=== PATIENT | male | born 1975 | race Caucasian/White ===

== ENCOUNTER 2020-12-11 09:29 | Emergency (ER) | payer OTHER, SELFPAY ==
--- NOTE | ~2020-12-11 | CT_ITS ---
EXAMINATION: CT abdomen pelvis w con DATE: 12/11/2020 10:31 INDICATION: 3 days of epigastric pain radiating to the back along with nausea and vomiting TECHNIQUE: Computed tomography (CT) of the abdomen and pelvis was performed with 100 mL Omnipaque-350 intravenous contrast. Automated exposure control and iterative reconstruction technique were employe d. The dose-length product was 1240.61 mGy-cm. COMPARISON: None FINDINGS: Lung bases are clear. Heart size is normal. No pericardial or pleural effusion. Postoperative change of prior Manan fundoplication. Liver, gallbladder, spleen, pancreas, bilateral adrenal glands and ki dneys are normal. There is wall thickening at the first and second portions of the duodenum with mild haziness to the immediately adjacent fat consistent with duodenitis. Large amount of stool scattered throughout the colon which could be seen with constipation. No bowel obstruction. Normal appendix. M ild diffuse smooth bladder wall thickening which could be due to incomplete distention or cystitis ei ther acute or chronic. No free intraperitoneal gas or fluid. No pathologically enlarged abdominal or pelvic lymphadenopathy. Lumbar facet osteoarthritis, severe on the left at L5-S1 and otherwise mild t o moderate. IMPRESSION: 1. Edematous wall thickening at the first and second portion of the duodenum consistent with duodenit is which could be infectious or inflammatory in etiology or related to peptic ulcer disease. 2. Diffuse mild bladder wall thickening which could be due to incomplete distention with differential including cystitis either acute or chronic. Correlate with urinalysis. Reviewed, dictated and finalized at location [facility]. [employer] IMPRESSION: 1. Edematous wall thickening at the first and second portion of the duodenum co nsistent with duodenitis which could be infectious or inflammatory in etiology or related to peptic ulcer disease. 2. Diffuse mild bladder wall thickening which could be due to incomplete disten tion with differential including cystitis either acute or chronic. Correlate wi urinalysis.
[2020-12-11 09:41] VITALS: BP 162/95; PULSE 77; RESP 16; TEMP 36.3; O2SAT 100
--- NOTE | 2020-12-11 09:56 | ED.ABDPAIN ---
HPI - Abdominal Pain General Chief Complaint: Abdominal Pain Stated Complaint: abd pain Time Seen by Provider: 12/11/20 09:52 History of Present Illness HPI narrative: 45 yo male w/ h/o hiatal hernia s/p repair presents to the ED for abdominal pain. Epigastric pain started 3 days ago. Burning in quality. Radiates into his chest. Severe for the first 2 days. associated with nausea. Made worse by eating. Now mild-moderate. Went to PCP today and they sent him here for further evaluation. No fever, diarrhea, vomiting. Related Data Allergies Allergy/AdvReac Type Severity Reaction Status Date / Time Penicillins Allergy Unknown Unknown Verified 12/11/20 09:44 Review of Systems Review of Systems: All systems reviewed & are unremarkable except as noted in HPI and below Constitutional: Constitutional: Denies chills and Denies fever(s) Cardiovascular: Cardiovascular: Denies chest pain Respiratory: Respiratory: Denies dyspnea Gastrointestinal: Gastrointestinal: Reports abdominal pain, Denies constipation, Denies diarrhea, Reports nausea and Denies vomiting Genitourinary: Genitourinary: Denies dysuria Musculoskeletal: Musculoskeletal: Denies back pain Neurologic: Denies dizziness and Denies weakness [facility] Past Medical History Medical History HTN (hypertension) Inguinal hernia Surgical History Surgical History Hx of inguinal hernia repair Social History Social History Smoking status: Former smoker Substance use type: marijuana Gender identity (if verbalized by the patient): Male Exam Const: General: healthy appearing, no acute distress and alert Orientation/consciousness: patient oriented x3 HENMT: Head: normal to inspection Neck: Neck: normal visual inspection Resp: Effort & Inspection: normal respiratory effort Auscultation: clear to auscultation bilaterally, no rales, no rhonchi and no wheezes Cardio: Jugular venous distension: no JVD Rate: regular rate Rhythm: regular rhythm Heart sounds: no murmurs GI: Inspection: non-distended GI Palp: Yes Soft to palpation and Yes Tenderness to palpation present (GI) (epigastrium) Skin: General skin exam: normal color Neuro: General: patient oriented x3, moves all extremities and CN's II-XI intact bilaterally Speech: normal speech Extrem: General: no edema Psych: Appearance: well kempt Affect: normal affect Course Vital Signs Vital signs: Vital Signs Temperature 36.3 C L 12/11/20 09:41 Pulse Rate 77 12/11/20 09:41 Respiratory Rate 16 12/11/20 09:41 Blood Pressure 162/95 H 12/11/20 09:41 Pulse Oximetry 100 12/11/20 09:41 Temperature 36.3 C L 12/11/20 09:41 Pulse Rate 80 12/11/20 11:11 Respiratory Rate 12 12/11/20 11:11 Blood Pressure 155/70 H 12/11/20 11:11 Pulse Oximetry 99 12/11/20 11:11 MDM - Abdominal Pain MDM Narrative Medical decision making narrative: SYmptoms most concerning for PUD. infectious less likely. Plan discussed with Dr. Vick. He will follow-up. Differential Diagnosis Differential diagnosis: Likely pancreatitis and other (PUD, cholecystitis) Medical Records Attestation: I reviewed the patient's medical records. Lab Data Attestation: I reviewed the patient's lab results. Result diagrams: 12/11/20 09:50 12/11/20 09:50 Labs: Lab Results 12/11/20 12/11/20 12/11/20 Range/Units 09:50 09:50 11:22 WBC 8.8 (4.5-10.0) K/mm3 RBC 4.95 (4.6-6.20) M/mm3 Hgb 16.2 (14.0-18.0) g/dL Hct 46.5 (42.0-52.0) % MCV 93.9 (80-100) fl MCH 32.7 (26-34) pg MCHC 34.8 (32-36) g/dl RDW 11.9 (11.5-14.5) % Plt Count 185 (150-375) k/mm3 MPV 8.9 (7.4-10.4) fl Immature Gran % (Auto) 0.3 (0-0.5) % Neut % (Auto) 69.9 (45.5-73.1) % Lymph % (Auto) 19.3 (18.
[2020-12-11 09:59] LABS: Basophils Absolute Auto 0.1 K/mm3 (0.0-0.1); Basophils Percent Auto 0.6 % (0.2-1.2); Eosinophils Absolute Auto 0.2 K/mm3 (0-0.3); Eosinophils Percent Auto 2.5 % (0-4.4); Hematocrit 46.5 % (42.0-52.0); Hemoglobin 16.2 g/dL (14.0-18.0); Immature Granulocyte Absolute 0.03 K/mm3 (0.00-0.031); Immature Granulocyte Percent A 0.3 % (0-0.5); Lymphocytes Percent Auto 19.3 % (18.3-44.2); Mean Corpuscular HGB Conc 34.8 g/dl (32-36); Mean Corpuscular Hemoglobin 32.7 pg (26-34); Mean Corpuscular Volume 93.9 fl (80-100); Mean Platelet Volume 8.9 fl (7.4-10.4); Monocytes Absolute Auto 0.7 K/mm3 (0.1-0.6); Monocytes Percent Auto 7.4 % (2.6-8.5); Neutrophils Absolute Auto 6.2 K/mm3 (1.3-6.7); Neutrophils Percent Auto 69.9 % (45.5-73.1); Platelet Count Result 185 k/mm3 (150-375); Red Blood Count 4.95 M/mm3 (4.6-6.20); Red Cell Distribution Width 11.9 % (11.5-14.5); White Blood Count 8.8 K/mm3 (4.5-10.0)
[2020-12-11 10:10] LABS: Alanine Aminotransferase 23 U/L (4-50); Albumin Level 4.4 g/dL (3.5-5.1); Alkaline Phosphatase 52 U/L (38-126); Anion Gap 8 mmol/L (8-16); Aspartate Amino Transferase 27 U/L (17-59); Bilirubin,Total 0.4 mg/dL (0.2-1.3); Blood Urea Nitrogen 14 mg/dL (9-20); Calcium 9.2 mg/dL (8.4-10.2); Carbon Dioxide 25 mmol/L (22-30); Chloride 101 mmol/L (98-107); Estimated CRCL calculation 126 ml/min; Estimated Glomerular Filt Rate > 60; Glucose 101 mg/dL (75-110); Lipase 70 U/L (23-300); Potassium 4.3 mmol/L (3.4-5.0); Sodium 134 mmol/L (137-145)
[2020-12-11] MEDS: PANTOPRAZOLE SODIUM IV 40 MG VIAL IV PUSH (11:02)
[2020-12-11 11:11] VITALS: BP 155/70; PULSE 80; RESP 12; O2SAT 99
[2020-12-11 11:38] LABS: Add Urine Microscopic? NO; Appearance Urine Clear (Clear); Bilirubin Urine Negative (Negative); Blood Urine Negative (Negative); Color Urine Straw (Yellow); Glucose Urine UA Negative (Negative); Ketones Urine Negative (Negative); Leukocyte Esterase Ur Negative LEU/UL (Negative); Nitrate Urine Negative (Negative); Protein Urine Negative (Negative); Urobilinogen Urine Negative mg/dL (<2.0)
[2020-12-11 11:39] LABS: Specific Grav Ur 1.046 (1.001-1.035)
== END 2020-12-11 11:45 | disposition home or self-care (01) ==
PROVIDERS: Emergency Provider Emergency Medicine; PCP Family Medicine
DX: K29.80 Duodenitis without bleeding (principal); I10 Essential (primary) hypertension
CPT/HCPCS: 36415; 74177; 80053; 81003; 83690; 85025; 96374; 99284; C9113; Q9967

== ENCOUNTER → 2021-03-08 07:04 | Outpatient (CLI) | payer OTHER, SELFPAY ==
[2021-03-09 00:40] LABS: SARS-CoV-2 RNA PCR Negative
== END ==
PROVIDERS: PCP Family Medicine; Visit Provider Internal Medicine Gastroenterology
DX: Z01.812 Encounter for preprocedural laboratory examination (principal); Z20.822 Contact with and (suspected) exposure to COVID-19
CPT/HCPCS: C9803; U0003; U0005

== ENCOUNTER 2021-03-12 00:46 | Day surgery (SDC) | payer OTHER, SELFPAY ==
[2021-03-04 13:06] VITALS: BMI 31.4
[2021-03-12 08:22] VITALS: BP 146/83; PULSE 80; RESP 18; TEMP 36.6; O2SAT 98
[2021-03-12] MEDS: LACTATED RINGERS 1,000 ML 150 ML IV CONT (08:31)
--- NOTE | 2021-03-12 08:54 | WPDANESEPPF ---
Anes - Initial Pre Proc Eval Procedure: Operation Date: 03/12/21 09:30 Proposed Procedures p Esophagogastroduodenoscopy - Hernan Ha MD Date/Time: 03/12/21 08:54 Surgeon: Hernan Ha MD Pre Op Diagnosis: abnormal CAT, Duodenitis Patient Data Age: 45 Gender: M Height: 5 ft 11 in Weight: 99 kg Last Vital Signs Temp 97.9 F 03/12/21 08:22 Pulse 80 03/12/21 08:22 Resp 18 03/12/21 08:22 BP 146/83 H 03/12/21 08:22 Pulse Ox 98 03/12/21 08:22 Allergies Allergy/AdvReac Type Severity Reaction Status Date / Time Penicillins Allergy Unknown Rash Verified 03/12/21 08:21 Home Medications Medication Instructions Recorded Confirmed Type clonidine HCl 0.1 mg PO DAILY 03/04/21 03/04/21 History lisinopril-hydrochlorothiazide 10 - 12.5 tablet PO DAILY 03/04/21 03/04/21 History omeprazole 20 mg PO DAILY 03/04/21 03/04/21 History Patient hx anesthesia problems: none Family hx anesthesia problems: none PMFSH Past Medical History Medical History HTN (hypertension) Inguinal hernia Surgical History Surgical History Hx of inguinal hernia repair Social History Social History (Updated 02/10/21 @ 15:09 by Charla Cisse CMA) Smoking status: Current some day smoker Tobacco type: cigars Alcohol intake: current Alcohol use details: 3/4 x wk Substance use: current Substance use type: marijuana Living arrangements: with family Gender identity (if verbalized by the patient): Male Anes - Eval Final PreProcedure Day of Procedure 03/12/21 08:54 Patient weight: overweight Heart: regular rate and rhythm Lungs: clear to auscultation Airway: Mallampati scale class II Neurological: alert and oriented Last oral intake: >/= 8 hours ASA classification: II Emergent: no Anesthetic plan: proceed Anesthesia type and monitoring: general GIVS and standard monitoring Informed Consent: The patient's anesthetic plan and its attendant risks and benefits were discussed with the patient/family/POA. Questions were solicited and answers provided to the satisfaction of the patient/family/POA.
--- NOTE | 2021-03-12 09:06 | PM.HPGS ---
History of Present Illness History of Present Illness Consent: Risks, benefits, and alternatives have been discussed and questions answered. Patient agrees to proceed with procedure. Chief complaint: abnormal CAT, Duodenitis Narrative: Casey La is a 45 year old male referred for EGD because of epigastric pain and an abnormal CT scan Review of Systems Review of Systems: All systems reviewed & are unremarkable except as noted in HPI and below PMFSH Past Medical History Medical History (Updated 03/12/21 @ 09:07 by Hernan Ha MD) HTN (hypertension) Inguinal hernia Surgical History Surgical History Hx of inguinal hernia repair Social History Social History Smoking status: Current some day smoker Tobacco type: cigars Alcohol intake: current Alcohol use details: 3/4 x wk Substance use: current Substance use type: marijuana Living arrangements: with family Gender identity (if verbalized by the patient): Male Meds Home Medications and Allergies Home Medications Medication Instructions Recorded Confirmed Type clonidine HCl 0.1 mg PO DAILY 03/04/21 03/04/21 History lisinopril-hydrochlorothiazide 10 - 12.5 tablet PO DAILY 03/04/21 03/04/21 History omeprazole 20 mg PO DAILY 03/04/21 03/04/21 History Allergies Allergy/AdvReac Type Severity Reaction Status Date / Time Penicillins Allergy Unknown Rash Verified 03/12/21 08:21 Vital Signs Vital Signs - 24 hr 03/12/21 08:22 Temperature 36.6 C Pulse Rate 80 Respiratory Rate 18 Blood Pressure 146/83 H Pulse Oximetry 98 Exam Const: General: alert Orientation/consciousness: patient oriented x3 Resp: Auscultation: clear to auscultation bilaterally Cardio: Rhythm: regular rhythm GI: GI Palp: Yes Soft to palpation and No Tenderness to palpation present (GI) Neuro: General: patient oriented x3 Assessment and Plan Assessment and plan (1) Abnormal CT scan, gastrointestinal tract: Code(s): R93.3 - Abnormal findings on diagnostic imaging of other parts of digestive tract Status: Acute Assessment and Plan: EGD with possible biopsy or dilatation or cautery.
[2021-03-12 09:27] VITALS: BP 135/84; PULSE 80; RESP 20; O2SAT 100
[2021-03-12 09:37] VITALS: BP 123/75; PULSE 61; RESP 17; O2SAT 98
[2021-03-12 09:47] VITALS: BP 115/73; PULSE 60; RESP 17; O2SAT 99
== END 2021-03-12 10:03 | disposition home or self-care (01) ==
PROVIDERS: PCP Family Medicine; Visit Provider Internal Medicine Gastroenterology
PROC: 0DJ08ZZ Inspection of Upper Intestinal Tract, Via Natural or Artificial Opening Endoscopic (ICD-10-PCS; CPT 43235; principal; 2021-03-12 09:30)
DX: K21.9 Gastro-esophageal reflux disease without esophagitis (principal); K29.80 Duodenitis without bleeding; Z98.890 Other specified postprocedural states; I10 Essential (primary) hypertension; F17.290 Nicotine dependence, other tobacco product, uncomplicated
CPT/HCPCS: 43239; 87081; 88305; C9803; J2001; J2704; J7120; U0003; U0005

== ENCOUNTER → 2022-01-17 00:04 | Outpatient (CLI) | payer OTHER, SELFPAY ==
[2022-01-17 11:41] LABS: SARS-CoV-2 RNA PCR Negative
== END ==
PROVIDERS: PCP Physician Assistant; Visit Provider Internal Medicine Gastroenterology
DX: Z01.812 Encounter for preprocedural laboratory examination (principal); Z20.822 Contact with and (suspected) exposure to COVID-19
CPT/HCPCS: C9803; U0003; U0005

== ENCOUNTER 2022-01-21 00:22 | Day surgery (SDC) | payer OTHER, SELFPAY ==
[2022-01-14 13:06] VITALS: BMI 31.6
--- NOTE | 2022-01-21 09:10 | P.PNAN_ITS ---
Anes - Initial Pre Proc Eval Procedure: Operation Date: 01/21/22 11:30 Proposed Procedures p Colonoscopy - Markus Rosa MD Date/Time: 01/21/22 09:10 Surgeon: Markus Rosa MD Pre Op Diagnosis: positive cologuard Patient Data Age: 46 Gender: M Height: 1.78 m Weight: 100 kg Allergies Allergy/AdvReac Type Severity Reaction Status Date / Time Penicillins Allergy Unknown Rash Verified 01/21/22 10:36 Home Medications Medication Instructions Recorded Confirmed Type clonidine HCl 0.1 mg PO DAILY 03/04/21 01/14/22 History lisinopril-hydrochlorothiazide 10 - 12.5 tablet PO DAILY 03/04/21 01/14/22 History Patient hx anesthesia problems: none Family hx anesthesia problems: none Results Review: All pre-operative results and documents have been reviewed as part of the pre-operative evaluation. [facility] Past Medical History Medical History (Updated 01/21/22 @ 09:11 by Callum Angel MD) Arthritis Chronic GERD HTN (hypertension) Inguinal hernia Obese Surgical History Surgical History Hx of inguinal hernia repair Social History Social History Smoking status: Current some day smoker Tobacco type: cigars Alcohol intake: current Alcohol use details: 6 pack of beer daily Substance use: never Substance use type: marijuana Living arrangements: with family Gender identity (if verbalized by the patient): Male Spiritual care concerns: No Anes - Eval Final PreProcedure Day of Procedure 01/21/22 09:10 Patient weight: obese Heart: regular rate and rhythm Lungs: clear to auscultation and normal air movement Airway: Mallampati scale class II Neurological: alert and oriented Last oral intake: >/= 8 hours ASA classification: II Emergent: no Anesthetic plan: proceed Anesthesia type and monitoring: general GIVS Results Review: All pre-operative results and documents have been reviewed as part of the pre-operative evaluation. Informed Consent: The patient's anesthetic plan and its attendant risks and benefits were discussed with the patient/family/POA. Questions were solicited and answers provided to the satisfaction of the patient/family/POA.
[2022-01-21 10:37] VITALS: BP 139/92; PULSE 90; RESP 20; TEMP 37; O2SAT 100
[2022-01-21] MEDS: LACTATED RINGERS 1,000 ML 150 ML IV CONT (10:50)
--- NOTE | 2022-01-21 11:32 | PM.HPGS ---
History of Present Illness History of Present Illness Consent: Risks, benefits, and alternatives have been discussed and questions answered. Patient agrees to proceed with procedure. Chief complaint: positive cologuard Narrative: Casey La is a 46 year old male here for first colonoscopy, had positive cologuard Review of Systems Constitutional: Constitutional: Denies headache(s) and Denies weakness Eyes: Eyes: Denies blurry vision ENT: Reports Normal hearing present, Denies headache(s) and Denies neck pain Cardiovascular: Cardiovascular: Denies chest pain and Denies dyspnea Respiratory: Respiratory: Denies dyspnea Gastrointestinal: Gastrointestinal: Reports no additional gastrointestinal complaints Genitourinary: Genitourinary: Denies dysuria Musculoskeletal: Musculoskeletal: Denies neck pain Integumentary/Breasts: Skin/Breast: Denies dry skin Neurologic: Reports Normal hearing present, Denies headache(s) and Denies weakness Psychiatric: Psychiatric: Denies anxiety Endocrine: Endocrine: Denies change in body appearance Hematologic/Lymphatic: Hematologic/Lymphatic: Denies easy bleeding Allergic/Immunologic: Allergic/Immunologic: Denies urticaria PMFSH Past Medical History Medical History (Updated 01/21/22 @ 11:33 by Markus Rosa MD) Arthritis Chronic GERD HTN (hypertension) Inguinal hernia Obese Positive colorectal cancer screening using Cologuard test Surgical History Surgical History Hx of inguinal hernia repair Social History Social History Smoking status: Current some day smoker Tobacco type: cigars Alcohol intake: current Alcohol use details: 6 pack of beer daily Substance use: never Substance use type: marijuana Living arrangements: with family Gender identity (if verbalized by the patient): Male Spiritual care concerns: No Meds Home Medications and Allergies Home Medications Medication Instructions Recorded Confirmed Type clonidine HCl 0.1 mg PO DAILY 03/04/21 01/14/22 History lisinopril-hydrochlorothiazide 10 - 12.5 tablet PO DAILY 03/04/21 01/14/22 History Allergies Allergy/AdvReac Type Severity Reaction Status Date / Time Penicillins Allergy Unknown Rash Verified 01/21/22 10:36 Vital Signs Vital Signs - 24 hr 01/21/22 10:37 Temperature 98.6 F Pulse Rate 90 Respiratory Rate 20 Blood Pressure 139/92 H Pulse Oximetry 100 Exam Const: General: comfortable and no acute distress HENMT: General nose exam: Normal nares present Eyes: General: appearance normal, both eyes and all related structures Neck: Neck: no JVD Resp: Auscultation: clear to auscultation bilaterally Cardio: Rate: regular rate Rhythm: regular rhythm GI: Inspection: non-distended GI Palp: Yes Soft to palpation Skin: General skin exam: normal color Neuro: General: gait normal Speech: normal speech Extrem: General: normal to inspection Psych: Mental Status: mental status grossly normal Assessment and Plan Assessment and plan (1) Positive colorectal cancer screening using Cologuard test: Code(s): R19.5 - Other fecal abnormalities Status: Acute Assessment and Plan: colonoscopy
[2022-01-21 11:55] VITALS: BP 107/59; PULSE 75; RESP 25; O2SAT 100
[2022-01-21 12:05] VITALS: BP 114/75; PULSE 76; RESP 23; O2SAT 100
[2022-01-21 12:15] VITALS: BP 124/74; PULSE 68; RESP 26; O2SAT 100
== END 2022-01-21 12:19 | disposition home or self-care (01) ==
PROVIDERS: PCP Physician Assistant; Visit Provider Internal Medicine Gastroenterology
PROC: 0DJD8ZZ Inspection of Lower Intestinal Tract, Via Natural or Artificial Opening Endoscopic (ICD-10-PCS; CPT 45378; principal; 2022-01-21 11:30)
DX: R19.5 Other fecal abnormalities (principal); K63.5 Polyp of colon; K64.8 Other hemorrhoids; I10 Essential (primary) hypertension; K21.9 Gastro-esophageal reflux disease without esophagitis; E66.9 Obesity, unspecified; Z68.31 Body mass index [BMI] 31.0-31.9, adult; F12.90 Cannabis use, unspecified, uncomplicated; Z72.0 Tobacco use
CPT/HCPCS: 45385; 88305; C9803; J2704; J7120; U0003; U0005

== ENCOUNTER 2025-01-22 10:42 | Emergency (ER) | payer OTHER, SELFPAY ==
[2025-01-22] VITALS (7 sets, daily range): BP systolic 126–167; BP diastolic 77–99; PULSE 72–76; RESP 11–18; TEMP 36.8; O2SAT 100
--- NOTE | ~2025-01-22 | CT_ITS ---
CTA brain carotid Ordering provider: Jaime Barrera III, DO History: . lawson/dizziness . Comparison: July 01, 2019 Technique: CT angiogram head and neck was performed following timed intravenous injection of contrast . Thin slice axial images and reformatted coronal images were obtained. Three dimensional reformatted images of the brain were also obtained using a [employer] workstation. Radiation reduction technique ut ilized.The dose-length product was 1792.65 mGy-cm. 100 mL Omnipaque 350 FINDINGS: HEAD: --ANTERIOR AND MIDDLE CEREBRAL ARTERIES AND BRANCHES: Normal caliber and contour. --INTERNAL CAROTID ARTERIES: Mild atheromatous disease but no significant stenosis. No occlusion. --BASILAR ARTERY AND BRANCHES: Normal caliber and contour. No atheromatous disease. --POSTERIOR CEREBRAL ARTERIES: Normal caliber and contour --POSTERIOR COMMUNICATING ARTERIES: Not visualized which is probably related to congenital absence or small size. --ANEURYSM: None visualized. --BRAIN: Normal. --BONES AND SUPERFICIAL SOFT TISSUES: Scalp hematoma seen in the right frontal area. Otherwise, arnoldo l. --PARANASAL SINUSES AND MASTOIDS: Normal. NECK: --RIGHT CERVICAL CAROTID SYSTEM: Normal caliber and contour. Percent stenosis per NASCET criteria is 0%. No carotid dissection. Otherwise, no significant atheromatous disease or stenosis of the cervica l carotid system. --LEFT CERVICAL CAROTID SYSTEM: Normal caliber and contour. Percent stenosis per NASCET criteria is 0%. No carotid dissection. Otherwise, no significant atheromatous disease or stenosis of the cervical carotid system. --VERTEBRAL ARTERIES: Dominant left vertebral artery otherwise, Normal caliber and contour. --VISUALIZED AORTIC ARCH AND BRANCHING VESSELS: Normal caliber and contour. No significant atheromato us disease. --SOFT TISSUES: Normal. Parapharyngeal lymph nodes are seen with the largest measures 1.1 cm. --CERVICAL SPINE: Age appropriate degenerative changes. IMPRESSION: 1. Normal CTA head and neck. Percent stenosis per NASCET criteria is 0%. Reviewed, dictated and finalized at location A.
--- NOTE | 2025-01-22 10:53 | ECG_ITS ---
Test Date: 2025-01-22 10:56:23 Measurements Intervals [place] Rate: 82 P: 74 WA: 182 QRS: 73 QRSD: 117 T: 51 QT: 366 QTc: 428 Interpretive Statements SINUS RHYTHM INCOMPLETE RIGHT BUNDLE BRANCH BLOCK [90+ ms QRS DURATION, TERMINAL R IN V1/V2, 40+ ms S IN I/aVL/V4/V5/V6] No previous ECG available for comparison Electronically Signed On 01-22-2025 11:53:39 CDT by Gregorio Levy M.D.
--- NOTE | 2025-01-22 11:16 | ED.DIZZY ---
HPI - Dizziness General Chief Complaint: Dizziness Stated Complaint: dizzy, REA Time Seen by Provider: 01/22/25 10:51 History of Present Illness HPI Narrative: Pt was at work standing and got dizzy and developed a bitemporal REA and tightness in his chest. The chest tightness resolved after a few minutes but he had a feeling of fullness in his throat that has persisted. Pt denies one sided weakness ir speech issues. Pt cannot reproduce the dizziness with movement of head or position. Pt got sweaty and nauseated when symptoms started. Pt says mom dies suddenly of cardiac arrest in her 30's. Related Data Home Medications ?Medication ?Instructions ?Recorded ?Confirmed ?Last Taken ?Type clonidine HCl 0.1 mg tablet 0.1 mg PO DAILY 03/04/21 01/14/22 03/11/21 History lisinopril 10 10 - 12.5 tablet PO DAILY 03/04/21 01/14/22 03/11/21 History mg-hydrochlorothiazide 12.5 mg tablet Allergies Allergy/AdvReac Type Severity Reaction Status Date / Time Penicillins Allergy Unknown Rash Verified 01/21/22 10:36 Review of Systems Review of Systems: All systems reviewed & are unremarkable except as noted in HPI and below PMFSH Past Medical History Medical History (Updated 01/22/25 @ 16:06 by Jaime Barrera III, DO) Positive colorectal cancer screening using Cologuard test Arthritis Chronic GERD Obese Inguinal hernia HTN (hypertension) Surgical History Surgical History Hx of inguinal hernia repair Social History Social History Smoking status: Current some day smoker Tobacco type: cigars Alcohol intake: current Alcohol use details: 6 pack of beer daily Substance use: never Substance use type: marijuana Living arrangements: with family Occupation/Education: occupation Gender identity (if verbalized by the patient): Male Spiritual care concerns: No Exam Const: General: healthy appearing and no acute distress Nutritional Appearance: well nourished Orientation/consciousness: patient oriented x3 Limitations: no limitations Eyes: Pupils: Equal, round and reactive pupils present EOM: EOMs intact bilaterally Neck: Neck: normal visual inspection, no lymphadenopathy and no meningeal signs Chest: Chest palpation & inspection: normal inspection of the chest Resp: Effort & Inspection: normal respiratory effort Auscultation: clear to auscultation bilaterally Cardio: Rate: regular rate Rhythm: regular rhythm GI: Auscultation: normal bowel sounds Skin: General skin exam: normal color Wounds: no wounds Neuro: General: patient oriented x3, moves all extremities, no meningeal signs, no focal motor deficits and CN's II-XI intact bilaterally Cranial nerves: Yes Nystagmus not present Speech: normal speech Extrem: General: normal to inspection and no clubbing, cyanosis or edema Psych: Mental Status: mental status grossly normal Affect: normal affect Attitude: cooperative Course Vital Signs Vital signs: Vital Signs Temperature 98.2 F 01/22/25 10:56 Pulse Rate 76 01/22/25 10:56 Respiratory Rate 16 01/22/25 10:56 Blood Pressure 167/99 H 01/22/25 10:56 Pulse Oximetry 100 01/22/25 10:56 Oxygen Delivery Room Air 01/22/25 10:56 Temperature 98.2 F 01/22/25 10:56 Pulse Rate 72 01/22/25 15:41 Respiratory Rate 18 01/22/25 15:41 Blood Pressure 141/89 H 01/22/25 15:41 Pulse Oximetry 100 01/22/25 15:41 Oxygen Delivery Room Air 01/22/25 10:56 MDM - Dizziness MDM Narrative Medical decision making narrative: Pt has chest pressure into neck and dizziness and REA. could be either a cardiac event or SAH or cva with symptoms of both. will get ekg and labs to rule out acs and ct brain and cta head and neck to rule out neurologic cause. Pt feels fine now and has two normal ekg's and two normal troponins. CTA head and neck normal. 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 He will call his PCP to get cardiology referral. Will give him name of our transplanter orchid as well Lab Data 01/22/25 11:30 01/22/25 11:30 Labs: Lab Results 01/22/25 01/22/25 Range/Units 11:30 14:15 WBC 6.2 (4.5-10.0) K/mm3 RBC 4.63 (4.6-6.20) M/mm3 Hgb 15.4 (14.0-18.0) g/dL Hct 45.4 (42.0-52.0) % MCV 98.1 (80-100) fl MCH 33.3 (26-34) pg MCHC 33.9 (32-36) g/dl RDW 13.3 (11.5-14.5) % Plt Count 166 (150-375) k/mm3 MPV 8.8 (7.4-10.4) fl Immature Gran % (Auto) 0.5 (0-0.5) % Neut % (Auto) 56.6 (45.5-73.1) % Lymph % (Auto) 30.6 (18.3-44.2) % [place] % (Auto) 7.3 (2.6-8.5) % Eos % (Auto) 3.9 (0-4.4) % Baso % (Auto) 1.1 (0.2-1.2) % Lymph # (Auto) 1.90 (0.9-3.2) K/mm3 [place] # (Auto) 0.5 (0.1-0.6) K/mm3 Eos # (Auto) 0.2 (0-0.3) K/mm3 Baso # (Auto) 0.1 (0.0-0.1) K/mm3 Abs Immat Gran (auto) 0.03 (0.00-0.031) K/mm3 Absolute Neuts (auto) 3.5 (1.3-6.7) K/mm3 Absolute Nucleated RBC 0.000 (0.0-0.012) K/mm3 Nucleated RBC % 0.0 (0.0-0.2) % PT 12.4 (11.1-14.7) Seconds INR 0.9 APTT 27.9 (22.3-36.8) Seconds Sodium 137 (137-145) mmol/L Potassium 4.1 (3.4-5.0) mmol/L Chloride 104 (98-107) mmol/L Carbon Dioxide 20 L (22-30) mmol/L Anion Gap 13 H (4-12) mmol/L BUN 13 (9-20) mg/dL Creatinine 0.79 (0.7-1.3) mg/dL Estim Creat Clear Calc 118 ml/min Estimated GFR > 60 (59 - ) Glucose 87 (65-110) mg/dL Calcium 9.6 (8.4-10.2) mg/dL Total Bilirubin 0.4 (0.2-1.3) mg/dL AST 27 (17-59) U/L ALT 27 (6-50) U/L Alkaline Phosphatase 66 (38-126) U/L Troponin I < 0.012 < 0.012 (0.000-0.034) ng/mL Total Protein 8.0 (6.3-8.2) g/dL Albumin 4.9 (3.5-5.1) g/dL Discharge Plan Discharge Clinical Impression: Chest pain, Near syncope Patient Disposition: Home, Self-Care Condition: Improved Instructions: Antibiotic Form, Chest Pain (DC), Dizziness (ED) Additional Instructions: return if any further episodes or concerns Patient Language: Spanish Prescriptions: No Action clonidine HCl 0.1 mg tablet 0.1 mg PO DAILY lisinopril-hydrochlorothiazide 10-12.5 mg tablet 10 - 12.5 tablet PO DAILY Follow-up/Referrals: Ospina,Abimbola Soliz APRN [Primary Care Provider] - Gregorio Levy MD [Physician] - Stand Alone Forms: Work/School Release IP Quality HEART score for chest pain patients History: moderately suspicious ECG: normal Age: > 45 and < 65 years Risk factors: 1 or 2 risk factors Troponin: < or = to 1x normal limit Heart score: 3
[2025-01-22 11:35] LABS: Basophils Absolute Auto 0.1 K/mm3 (0.0-0.1); Basophils Percent Auto 1.1 % (0.2-1.2); Eosinophils Absolute Auto 0.2 K/mm3 (0-0.3); Eosinophils Percent Auto 3.9 % (0-4.4); Hematocrit 45.4 % (42.0-52.0); Hemoglobin 15.4 g/dL (14.0-18.0); Immature Granulocyte Absolute 0.03 K/mm3 (0.00-0.031); Immature Granulocyte Percent A 0.5 % (0-0.5); Lymphocytes Percent Auto 30.6 % (18.3-44.2); Mean Corpuscular HGB Conc 33.9 g/dl (32-36); Mean Corpuscular Hemoglobin 33.3 pg (26-34); Mean Corpuscular Volume 98.1 fl (80-100); Mean Platelet Volume 8.8 fl (7.4-10.4); Monocytes Absolute Auto 0.5 K/mm3 (0.1-0.6); Monocytes Percent Auto 7.3 % (2.6-8.5); Neutrophils Absolute Auto 3.5 K/mm3 (1.3-6.7); Neutrophils Percent Auto 56.6 % (45.5-73.1); Platelet Count Result 166 k/mm3 (150-375); Red Blood Count 4.63 M/mm3 (4.6-6.20); Red Cell Distribution Width 13.3 % (11.5-14.5); White Blood Count 6.2 K/mm3 (4.5-10.0)
[2025-01-22 11:47] LABS: INR 0.9; Prothrombin Time 12.4 Seconds (11.1-14.7)
[2025-01-22 11:48] LABS: Partial Thromboplastin Time 27.9 Seconds (22.3-36.8)
[2025-01-22 11:54] LABS: Alanine Aminotransferase 27 U/L (6-50); Albumin Level 4.9 g/dL (3.5-5.1); Alkaline Phosphatase 66 U/L (38-126); Anion Gap 13 mmol/L (4-12); Aspartate Amino Transferase 27 U/L (17-59); Bilirubin,Total 0.4 mg/dL (0.2-1.3); Blood Urea Nitrogen 13 mg/dL (9-20); Calcium 9.6 mg/dL (8.4-10.2); Carbon Dioxide 20 mmol/L (22-30); Chloride 104 mmol/L (98-107); Estimated CRCL calculation 118 ml/min; Estimated Glomerular Filt Rate > 60; Glucose 87 mg/dL (65-110); Potassium 4.1 mmol/L (3.4-5.0); Sodium 137 mmol/L (137-145)
[2025-01-22 12:06] LABS: Troponin I < 0.012 ng/mL (0.000-0.034)
--- OUTSIDE RECORDS SUMMARY | 2025-01-22 12:38 | XMS_ITS | Referral Summary ---
Author Organization [facility] Address [address] [place] [address] Care Team Providers Care Asset Protection Manager Name Role Phone Abimbola Ospina NP Primary Care Provider [phone] Encounters Date Type Department Care Team Description 12/12/2024 4:00 PM MOLDER WAX BALL Office Visit [facility] Primary Care at [address] [address] Abimbola Ospina NP Essential hypertension (Primary Dx); Acute cough; CARLA (generalized anxiety disorder); Colon cancer screening from Last 3 Months Allergies Active Allergy Reactions Criticality Noted Date Comments Penicillins Unknown 12/14/2019 Medications cloNIDine (CATAPRES) 0.1 mg tabletIndication s:Essential hypertension Take 1 tablet (0.1 mg total) by mouth 2 (two) times a day 180 tablet 3 4 Active Additional Information Patient not taking.Reported on 12/12/2024 imiquimod (ALDARA) 5 % creamIndications :Lesion of penis Apply topically 3 (three) times a week 24 each 4 Active losartan (COZAAR) 50 mg tabletIndication s:Essential hypertension Take 1 tablet (50 mg total) by mouth daily 90 tablet 1 5 Active clonazePAM (KlonoPIN) 0.5 mg tablet Take 1 tablet (0.5 mg total) by mouth daily as needed for anxiety 30 tablet 5 Active promethazine-DM (PROMETHAZINE-DM ) 1.25-3 mg/mL syrup Take 5 mL by mouth every 4 (four) hours as needed for cough 120 mL 5 Active Active Problems Problem Noted Date Diagnosed Date Lesion of penis 04/24/2024 CARLA (generalized anxiety disorder) 12/30/2023 Assessment & Plan (12/12/2024 4:40 PM MOLDER WAX BALL): PRN Clonazepam refilled Assessment & Plan (12/30/2023 2:50 PM MOLDER WAX BALL): Has had increased anxiety r/t break up with girlfriend over the past 6 months. Was rx'd Alprazolam in the past from prior PCP, uses very sparingly (last refill 05/2023). I am going to switch to Clonazepam prn. Patient education provided, patient not interested in daily medication at this time. Neuropathy 12/11/2021 Assessment & Plan (12/11/2021 6:17 PM MOLDER WAX BALL): Advised cockup splints at hs x 4w Discussed referral for emg/further evaluation if not improving or if symptoms worsen Tobacco use 12/11/2021 Assessment & Plan (12/11/2021 6:17 PM MOLDER WAX BALL): Advised him to stop smoking Positive colorectal cancer screening using Colog uard test 12/11/2021 Assessment & Plan (12/11/2021 6:16 PM MOLDER WAX BALL): Will refer for evaluation with gi Essential hypertension 12/11/2021 Assessment & Plan (12/12/2024 4:40 PM MOLDER WAX BALL): Initial BP elevated, repeat better. Has been out of Clonidine, will take this opportunity to dc the medication. Will increase Losartan to 50 mg to compensate. Home BP log in 1 week. Updated labs ordered. Assessment & Plan (04/24/2024 1:16 PM CDT): Continue probiotic Increasing fiber in the diet might be helpful as well- should be accomplished with the Feliciano Reynoso supplement If symptoms recur, we will scan Refilled blood pressure medications Assessment & Plan (12/30/2023 2:46 PM MOLDER WAX BALL): Home BP's occasionally ranging 150-160's/90-100's since anxiety has increased over the past 6 months. Increased today in office. Patient has been on Clonidine 0.2 mg BID chronically, PCP in the past tried switching him to Lisinopril-HCTZ but patient was not weaned off the Clonidine and had rebound hypertension/headache. Was placed back on the Clonidine 0.2 mg BID. Discussed Clonidine not being the ideal BP medication. Will wean slowly from the Clonidine. Change to 0.1 mg BID and add in Losartan 25 mg daily. Follow up in 4 weeks. Home BP log. Assessment & Plan (12/11/2021 6:16 PM MOLDER WAX BALL): We discussed potentially adjusting medications - will retrieve records from pcp. Advised monitoring bp bid and recording readings, documenting what he is taking and when. When he returns to next appt, he will bring this info so further adjustments can be made with his meds. Resolved Problems Problem Noted Date Diagnosed Date Resolved Date Encounter to establish care 12/11/2021 12/29/2021 Assessment & Plan (12/11/2021 6:17 PM MOLDER WAX BALL): Retrieve records from previous pcp Immunizations Immunization Administration Dates Next Due Influenza, Unspecified 11/15/2023(Deferr ed: Patient Refused),11/15/2022(Deferred: Patient Refused),08/15/2022(Deferred: Patient Refused),12/11/2021(Deferred: Patient Refused) Social History Tobacco Use Types Packs/Day Years Used Date Smoking Tobacco: Some Days Cigarettes Cigars Passive Smoke Exposure: Current Smokeless Tobacco: Never Tobacco Cessation:Ready to Q uit: Not Asked; Counseling Given: Not Answered Alcohol Use Standard Drinks/Week Comments Yes 10 (1 standard drink = 0.6 oz pu re alcohol) AUDIT-C Answer Date Recorded Q1: How often do you have a drink containing alc ohol? 2-4 times a month 12/11/2021 Average Number of Drinks Not on file 022 Q3: How often do you have si x or more drinks on one occasion? Weekly 12/11/2021 PHQ-2 Answer Date Recorded PHQ-2 Total Score (If total score is 3 or more points, staff should administer the PHQ-9) 0 12/12/2024 Sex and Gender Information Value Date Recorded Sex Assigned at Not on file Legal Sex Male 5:13 PM MOLDER WAX BALL Gender Identity Not on file Sexual Orientation Not on file Last Filed Vital Signs Vital Sign Reading Time Taken Comments Blood Pressure 126/86 12/12/2024 4:33 PM MOLDER WAX BALL Pulse 89 12/12/2024 4:03 PM MOLDER WAX BALL Temperature 36.4 C (97.5 F) 12/12/2024 4:03 PM MOLDER WAX BALL Respiratory Rate 16 04/20/2024 3:21 PM CDT Oxygen Saturation 97% 12/12/2024 4:03 PM MOLDER WAX BALL Inhaled Oxygen Concentration - - Weight 94.3 kg (208 lb) 12/12/2024 4:03 PM MOLDER WAX BALL Height 177.8 cm (5' 10 ) 12/12/2024 4:03 PM MOLDER WAX BALL Body Mass Index 29.84 12/12/2024 4:03 PM MOLDER WAX BALL Plan of Treatment Not on file Procedures Procedure Name Priority Date/Time Associated Diagnosis Comments POC INFLUENZA A/B, COVID-19 ANTIGEN Routine 12/12/2024 4:34 PM MOLDER WAX BALL Acute cough HEPATITIS PANEL, ACUTE Routine 12/31/2023 1:25 PM MOLDER WAX BALL HM COLONOSCOPY Routine 01/21/2022 from Last 3 Months or Most Recently Relevant to Health Maintenance Results * POC Influenza A/B, COVID-19 antigen (12/12/2024 4:34 PM MOLDER WAX BALL) Influenza A Ag, POC Negative Negative [facility] Influenza B Ag, POC Negative Negative [facility] COVID-19 Ag POC Presumptive Negative Presumptive Negative, Invalid [facility] Nasopharyngeal 12/12/2024 4: 34 PM MOLDER WAX BALL us Abimbola Ospina NP POINT OF CARE TEST ORDERABLES Fi nal Result [facility] ED[facility] [address] [place] [address], [facility] * Hepatitis panel, acute (12/31/2023 1:25 PM MOLDER WAX BALL) Hep A IgM NON-REACTI VE NON-REACT OPAL [facility] Comment: For additional information, please refer to http://Central Desktop.LSN Mobile/faq/PMF334 (This link is being provided for informational/ educational purposes only.) HepBsAg NON-REACTI VE NON-REACT OPAL [facility] Comment: For additional information, please refer to http://WeFi/faq/QUX953 (This link is being provided for informational/ educational purposes only.) Hep B core IgM NON-REACTI VE NON-REACT OPAL [facility] Comment: For additional information, please refer to http://Central Desktop.LSN Mobile/faq/XZH230 (This link is being provided for informational/ educational purposes only.) Hep C Ab NON-REACTI VE NON-REACT OPAL [facility] Comment: HCV antibody was non-reactive. There is no laboratory evidence of HCV infection. In most cases, no further action is required. However, if recent HCV exposure is suspected, a test for HCV RNA (test code 89307) is suggested. For additional information please refer to http://WeFi/faq/GDT74b2 (This link is being provided for informational/ educational purposes only.) 12/31/2023 1:25 PM MOLDER WAX BALL 12/31/2023 1:30 PM MOLDER WAX BALL Narrative [facility] - 01/03/2024 2:38 PM MOLDER WAX BALL FASTING:UNKNOWN FASTING: UNKNOWN Abimbola Ospina NP LAB MICROBIOLOGY - GENERAL ORDER JOSE Final Result [facility] [address] [facility] [place] [address] * HM COLONOSCOPY (01/21/2022) Historical Provider HEALTH MAINTENANCE Final Result from Last 3 Months or Most Recently Relevant to Health Maintenance Insurance Care Teams Asset Protection Manager Relationship Specialty Start Date End Date Abimbola Ospina NP [address] [address] PCP - General Family Medicine 12/30/23
--- OUTSIDE RECORDS SUMMARY | 2025-01-22 12:38 | XMS_ITS | Clinical Summary ---
Author Organization [facility] Address [address] [place] [address] Care Team Providers Care Finance Controller Name Role Phone Abimbola Ospina NP Primary Care Provider [phone] Allergies Active Allergy Reactions Criticality Noted Date [...] 12/30/2023 Assessment & Plan (12/12/2024 4:40 PM AUTO BATTERY BUILDER): PRN Clonazepam refilled Assessment & Plan (12/30/2023 2:50 PM AUTO BATTERY BUILDER): Has had increased anxiety r/t break up with girlfriend over the past 6 months. Was rx'd Alprazolam in the past from prior PCP, uses very sparingly (last refill 05/2023). I am going to switch to Clonazepam prn. Patient education provided, patient not interested in daily medication at this time. Neuropathy 12/11/2021 Assessment & Plan (12/11/2021 6:17 PM AUTO BATTERY BUILDER): Advised cockup splints at hs x 4w Discussed referral for emg/further evaluation if not improving or if symptoms worsen Tobacco use 12/11/2021 Assessment & Plan (12/11/2021 6:17 PM AUTO BATTERY BUILDER): Advised him to stop smoking Positive colorectal cancer screening using Colog uard test 12/11/2021 Assessment & Plan (12/11/2021 6:16 PM AUTO BATTERY BUILDER): Will refer for evaluation with gi Essential hypertension 12/11/2021 Assessment & Plan (12/12/2024 4:40 PM AUTO BATTERY BUILDER): Initial BP elevated, repeat better. Has been [...] medications Assessment & Plan (12/30/2023 2:46 PM AUTO BATTERY BUILDER): Home BP's occasionally ranging 150-160's/90-100's since anxiety [...] log. Assessment & Plan (12/11/2021 6:16 PM AUTO BATTERY BUILDER): We discussed potentially adjusting medications - will [...] 12/29/2021 Assessment & Plan (12/11/2021 6:17 PM AUTO BATTERY BUILDER): Retrieve records from previous pcp Encounters Date Type Department Care Team Description 12/12/2024 4:00 PM AUTO BATTERY BUILDER Office Visit [facility] Medical [facility] Primary Care at [address] [address] Abimbola Ospina, KOMAL Essential hypertension (Primary Dx); Acute cough; CARLA (generalized anxiety disorder); Colon cancer screening from Last 3 Months Immunizations Immunization Administration Dates Next Due Influenza, Unspecified 11/15/2023(Deferr ed: Patient Refused),11/15/2022(Deferred: Patient Refused),08/15/2022(Deferred: Patient Refused),12/11/2021(Deferred: Patient Refused) Surgical History Surgery Date Site/Laterality Comments HERNIA REPAIR Medical History Medical History Date Comments Hypertension Family History Medical History Relation Name Comments Diabetes Maternal Grandfather Heart attack Mother Cancer Mother's Brother Relation Name Status Comments Maternal Grandfather Mother Mother's Brother Social History Tobacco Use Types Packs/Day Years [...] on file Legal Sex Male 5:13 PM AUTO BATTERY BUILDER Gender Identity Not on file Sexual Orientation Not on file Obstetrics History Last Filed Vital Signs Vital Sign Reading Time Taken Comments Blood Pressure 126/86 12/12/2024 4:33 PM AUTO BATTERY BUILDER Pulse 89 12/12/2024 4:03 PM AUTO BATTERY BUILDER Temperature 36.4 C (97.5 F) 12/12/2024 4:03 PM AUTO BATTERY BUILDER Respiratory Rate 16 04/20/2024 3:21 PM CDT Oxygen Saturation 97% 12/12/2024 4:03 PM AUTO BATTERY BUILDER Inhaled Oxygen Concentration - - Weight 94.3 kg (208 lb) 12/12/2024 4:03 PM AUTO BATTERY BUILDER Height 177.8 cm (5' 10 ) 12/12/2024 4:03 PM AUTO BATTERY BUILDER Body Mass Index 29.84 12/12/2024 4:03 PM AUTO BATTERY BUILDER Plan of Treatment Health Maintenance Due Date Last Done Comments Hepatitis B Screening 1994 Regular Well Visit/Exam 18-64 1994 Influenza Vaccine (#1) 2024 DTaP/Tdap/Td Vaccine (1 - Tdap) 04/17/2025 Postponed from 1987 (Patient declined, but will receive in the future) Depression Screening 12/12/2025 12/12/2024, 12/30/2023, 05/20/2023, Additional history exists Pneumococcal vaccine <65 (1 of 2 - PCV) 04/22/2027 Postponed from 1995 (Patient declined, but will receive in the future) Colon Cancer Screening-Colonoscopy 01/22/2032 01/21/2022 Hepatitis C Screening Completed 12/31/2023 Procedures Procedure Name Priority Date/Time Associated Diagnosis Comments POC INFLUENZA A/B, COVID-19 ANTIGEN Routine 12/12/2024 4:34 PM AUTO BATTERY BUILDER Acute cough HEPATITIS PANEL, ACUTE Routine 12/31/2023 1:25 PM AUTO BATTERY BUILDER HM COLONOSCOPY Routine 01/21/2022 from Last 3 Months or Most Recently Relevant to Health Maintenance Results * POC Influenza A/B, COVID-19 antigen (12/12/2024 4:34 PM AUTO BATTERY BUILDER) Influenza A Ag, POC Negative Negative [facility] Influenza B Ag, POC Negative Negative [facility] PCP FM EDW COVID-19 Ag POC Presumptive Negative Presumptive Negative, Invalid [facility] PCP FM ED[facility] Nasopharyngeal 12/12/2024 4: 34 PM AUTO BATTERY BUILDER Abimbola Ospina LEARNING DEVELOPER POINT OF CARE TEST ORDERABLES Fi nal Result [facility] PCP EDW [address] * Hepatitis panel, acute (12/31/2023 1:25 PM AUTO BATTERY BUILDER) Hep A IgM NON-REACTI VE NON-REACT OPAL [facility] Comment: For additional information, please refer to http://[employer].Enphase Energy/faq/RBL407 (This link is being provided for informational/ educational purposes only.) HepBsAg NON-REACTI VE NON-REACT OPAL [facility] Comment: For additional information, please refer to http://GenSpera.viseto/faq/OTC450 (This link is being provided for informational/ educational purposes only.) Hep B core IgM NON-REACTI VE NON-REACT OPAL [facility] Comment: For additional information, please refer to http://[employer].Enphase Energy/faq/AQE088 (This link is being provided for informational/ educational purposes only.) Hep C Ab NON-REACTI VE NON-REACT OPAL [facility] Comment: HCV antibody was non-reactive. There is no laboratory evidence of HCV infection. In most cases, no further action is required. However, if recent HCV exposure is suspected, a test for HCV RNA (test code 79876) is suggested. For additional information please refer to http://[employer].Enphase Energy/faq/DNK91t6 (This link is being provided for informational/ educational purposes only.) 12/31/2023 1:25 PM AUTO BATTERY BUILDER 12/31/2023 1:30 PM AUTO BATTERY BUILDER Narrative [facility] - 01/03/2024 2:38 PM AUTO BATTERY BUILDER FASTING:UNKNOWN FASTING: UNKNOWN Abimbola Ospina NP LAB MICROBIOLOGY - GENERAL ORDER JOSE Final Result [facility] [address] [place] [address] * HM COLONOSCOPY (01/21/2022) Historical Provider HEALTH MAINTENANCE Final Result from Last 3 Months or Most Recently Relevant to Health Maintenance Insurance [facility] Care Teams Finance Controller Relationship Specialty Start Date End Date Abimbola Ospina NP [facility] [address] [facility] [address] [place] [address] PCP - General Family Medicine 12/30/23
--- OUTSIDE RECORDS SUMMARY | 2025-01-22 13:42 | XMS_ITS | Clinical Summary ---
Author Organization [facility] Address [address] [place] [address] Care Team Providers Care Ingredient Scaler Name Role Phone Abimbola Ospina NP Primary Care Provider [phone] Allergies Active Allergy Reactions Criticality Noted Date [...] 12/30/2023 Assessment & Plan (12/12/2024 4:40 PM SLUMBER ROOM ATTENDANT): PRN Clonazepam refilled Assessment & Plan (12/30/2023 2:50 PM SLUMBER ROOM ATTENDANT): Has had increased anxiety r/t break up with girlfriend over the past 6 months. Was rx'd Alprazolam in the past from prior PCP, uses very sparingly (last refill 05/2023). I am going to switch to Clonazepam prn. Patient education provided, patient not interested in daily medication at this time. Neuropathy 12/11/2021 Assessment & Plan (12/11/2021 6:17 PM SLUMBER ROOM ATTENDANT): Advised cockup splints at hs x 4w Discussed referral for emg/further evaluation if not improving or if symptoms worsen Tobacco use 12/11/2021 Assessment & Plan (12/11/2021 6:17 PM SLUMBER ROOM ATTENDANT): Advised him to stop smoking Positive colorectal cancer screening using Colog uard test 12/11/2021 Assessment & Plan (12/11/2021 6:16 PM SLUMBER ROOM ATTENDANT): Will refer for evaluation with gi Essential hypertension 12/11/2021 Assessment & Plan (12/12/2024 4:40 PM SLUMBER ROOM ATTENDANT): Initial BP elevated, repeat better. Has been [...] medications Assessment & Plan (12/30/2023 2:46 PM SLUMBER ROOM ATTENDANT): Home BP's occasionally ranging 150-160's/90-100's since anxiety [...] log. Assessment & Plan (12/11/2021 6:16 PM SLUMBER ROOM ATTENDANT): We discussed potentially adjusting medications - will [...] 12/29/2021 Assessment & Plan (12/11/2021 6:17 PM SLUMBER ROOM ATTENDANT): Retrieve records from previous pcp Encounters Date Type Department Care Team Description 12/12/2024 4:00 PM SLUMBER ROOM ATTENDANT Office Visit [facility] Medical [facility] Primary Care at [address] [address] Abimbola Ospina, KOMAL Essential hypertension [...] on file Legal Sex Male 5:13 PM SLUMBER ROOM ATTENDANT Gender Identity Not on file Sexual Orientation Not on file Obstetrics History Last Filed Vital Signs Vital Sign Reading Time Taken Comments Blood Pressure 126/86 12/12/2024 4:33 PM SLUMBER ROOM ATTENDANT Pulse 89 12/12/2024 4:03 PM SLUMBER ROOM ATTENDANT Temperature 36.4 C (97.5 F) 12/12/2024 4:03 PM SLUMBER ROOM ATTENDANT Respiratory Rate 16 04/20/2024 3:21 PM CDT Oxygen Saturation 97% 12/12/2024 4:03 PM SLUMBER ROOM ATTENDANT Inhaled Oxygen Concentration - - Weight 94.3 kg (208 lb) 12/12/2024 4:03 PM SLUMBER ROOM ATTENDANT Height 177.8 cm (5' 10 ) 12/12/2024 4:03 PM SLUMBER ROOM ATTENDANT Body Mass Index 29.84 12/12/2024 4:03 PM SLUMBER ROOM ATTENDANT Plan of Treatment Health Maintenance Due Date [...] A/B, COVID-19 ANTIGEN Routine 12/12/2024 4:34 PM SLUMBER ROOM ATTENDANT Acute cough HEPATITIS PANEL, ACUTE Routine 12/31/2023 1:25 PM SLUMBER ROOM ATTENDANT HM COLONOSCOPY Routine 01/21/2022 from Last 3 Months or Most Recently Relevant to Health Maintenance Results * POC Influenza A/B, COVID-19 antigen (12/12/2024 4:34 PM SLUMBER ROOM ATTENDANT) Influenza A Ag, POC Negative Negative [facility] Influenza B Ag, POC Negative Negative [facility] PCP FM ED[facility] COVID-19 Ag POC Presumptive Negative Presumptive Negative, Invalid [facility] PCP FM ED[facility] Nasopharyngeal 12/12/2024 4: 34 PM SLUMBER ROOM ATTENDANT Abimbola Ospina ASSOCIATE PRODUCT INTEGRITY ENGINEER POINT OF CARE TEST ORDERABLES Fi nal Result [facility] PCP EDW [address] * Hepatitis panel, acute (12/31/2023 1:25 PM SLUMBER ROOM ATTENDANT) Hep A IgM NON-REACTI VE NON-REACT OPAL [facility] Comment: For additional information, please refer to http://Ouner.Magic Tech Network/faq/KLS419 (This link is being provided for informational/ educational purposes only.) HepBsAg NON-REACTI VE NON-REACT OPAL [facility] Comment: For additional information, please refer to http://VetDC.Homuork/faq/VRV987 (This link is being provided for informational/ educational purposes only.) Hep B core IgM NON-REACTI VE NON-REACT OPAL [facility] Comment: For additional information, please refer to http://Ouner.Magic [employer] Network/faq/IHJ021 (This link is being provided for informational/ educational purposes only.) Hep C Ab NON-REACTI VE NON-REACT OPAL [facility] Comment: HCV antibody was non-reactive. There is no laboratory evidence of HCV infection. In most cases, no further action is required. However, if recent HCV exposure is suspected, a test for HCV RNA (test code 98268) is suggested. For additional information please refer to http://Ouner.Magic Tech Network/faq/UYN69c2 (This link is being provided for informational/ educational purposes only.) 12/31/2023 1:25 PM SLUMBER ROOM ATTENDANT 12/31/2023 1:30 PM SLUMBER ROOM ATTENDANT Narrative [facility] - 01/03/2024 2:38 PM SLUMBER ROOM ATTENDANT FASTING:UNKNOWN FASTING: UNKNOWN Abimbola Ospina NP LAB MICROBIOLOGY - GENERAL ORDER JOSE Final Result [facility] [address] [place] [address] * HM COLONOSCOPY (01/21/2022) Historical Provider HEALTH MAINTENANCE Final Result from Last 3 Months or Most Recently Relevant to Health Maintenance Insurance [facility] Care Teams Ingredient Scaler Relationship Specialty Start Date End Date Abimbola Ospina NP [facility] [address] [facility] [address] [place] [address] PCP - General Family Medicine 12/30/23
--- OUTSIDE RECORDS SUMMARY | 2025-01-22 13:42 | XMS_ITS | Referral Summary ---
Author Organization [facility] Address [address] [place] [address] Care Team Providers Care Brewery Pumper Name Role Phone Abimbola Ospina NP Primary Care Provider [phone] Encounters Date Type Department Care Team Description 12/12/2024 4:00 PM SOURCING INTERNSHIP Office Visit [facility] Medical Group Primary Care at [address] [address] Abimbola Ospina NP Essential hypertension [...] 12/30/2023 Assessment & Plan (12/12/2024 4:40 PM SOURCING INTERNSHIP): PRN Clonazepam refilled Assessment & Plan (12/30/2023 2:50 PM SOURCING INTERNSHIP): Has had increased anxiety r/t break up with girlfriend over the past 6 months. Was rx'd Alprazolam in the past from prior PCP, uses very sparingly (last refill 05/2023). I am going to switch to Clonazepam prn. Patient education provided, patient not interested in daily medication at this time. Neuropathy 12/11/2021 Assessment & Plan (12/11/2021 6:17 PM SOURCING INTERNSHIP): Advised cockup splints at hs x 4w Discussed referral for emg/further evaluation if not improving or if symptoms worsen Tobacco use 12/11/2021 Assessment & Plan (12/11/2021 6:17 PM SOURCING INTERNSHIP): Advised him to stop smoking Positive colorectal cancer screening using Colog uard test 12/11/2021 Assessment & Plan (12/11/2021 6:16 PM SOURCING INTERNSHIP): Will refer for evaluation with gi Essential hypertension 12/11/2021 Assessment & Plan (12/12/2024 4:40 PM SOURCING INTERNSHIP): Initial BP elevated, repeat better. Has been [...] medications Assessment & Plan (12/30/2023 2:46 PM SOURCING INTERNSHIP): Home BP's occasionally ranging 150-160's/90-100's since anxiety [...] log. Assessment & Plan (12/11/2021 6:16 PM SOURCING INTERNSHIP): We discussed potentially adjusting medications - will [...] 12/29/2021 Assessment & Plan (12/11/2021 6:17 PM SOURCING INTERNSHIP): Retrieve records from previous pcp Immunizations Immunization [...] on file Legal Sex Male 5:13 PM SOUR[employer] INTERNS[employer] Gender Identity Not on file Sexual Orientation Not on file Last Filed Vital Signs Vital Sign Reading Time Taken Comments Blood Pressure 126/86 12/12/2024 4:33 PM SOURCING INTERNSHIP Pulse 89 12/12/2024 4:03 PM SOURCING INTERNSHIP Temperature 36.4 C (97.5 F) 12/12/2024 4:03 PM SOURCING INTERNSHIP Respiratory Rate 16 04/20/2024 3:21 PM CDT Oxygen Saturation 97% 12/12/2024 4:03 PM SOURCING INTERNSHIP Inhaled Oxygen Concentration - - Weight 94.3 kg (208 lb) 12/12/2024 4:03 PM SOURCING INTERNSHIP Height 177.8 cm (5' 10 ) 12/12/2024 4:03 PM SOURCING INTERNSHIP Body Mass Index 29.84 12/12/2024 4:03 PM SOURCING INTERNSHIP Plan of Treatment Not on file Procedures Procedure Name Priority Date/Time Associated Diagnosis Comments POC INFLUENZA A/B, COVID-19 ANTIGEN Routine 12/12/2024 4:34 PM SOURCING INTERNSHIP Acute cough HEPATITIS PANEL, ACUTE Routine 12/31/2023 1:25 PM SOURCING INTERNSHIP HM COLONOSCOPY Routine 01/21/2022 from Last 3 Months or Most Recently Relevant to Health Maintenance Results * POC Influenza A/B, COVID-19 antigen (12/12/2024 4:34 PM SOURCING INTERNSHIP) Influenza A Ag, POC Negative Negative [facility] Influenza B Ag, POC Negative Negative [facility] COVID-19 Ag POC Presumptive Negative Presumptive Negative, Invalid [facility] Nasopharyngeal 12/12/2024 4: 34 PM SOURCING INTERNSHIP us Abimbola Ospina NP POINT OF CARE TEST ORDERABLES Fi nal Result [facility] PCP EDW [address] [place] [address], [facility] * Hepatitis panel, acute (12/31/2023 1:25 PM SOURCING INTERNSHIP) Hep A IgM NON-REACTI VE NON-REACT OPAL [facility] Comment: For additional information, please refer to http://JetPay.Biz360/faq/HYL430 (This link is being provided for informational/ educational purposes only.) HepBsAg NON-REACTI VE NON-REACT OPAL [facility] Comment: For additional information, please refer to http://Orchid Software/faq/OEI798 (This link is being provided for informational/ educational purposes only.) Hep B core IgM NON-REACTI VE NON-REACT OPAL [facility] Comment: For additional information, please refer to http://JetPay.Biz360/faq/LBE393 (This link is being provided for informational/ educational purposes only.) Hep C Ab NON-REACTI VE NON-REACT OPAL [facility] Comment: HCV antibody was non-reactive. There is no laboratory evidence of HCV infection. In most cases, no further action is required. However, if recent HCV exposure is suspected, a test for HCV RNA (test code 12258) is suggested. For additional information please refer to http://Orchid Software/faq/AFP63z1 (This link is being provided for informational/ educational purposes only.) 12/31/2023 1:25 PM S[employer]ING INTERNSHIP 12/31/2023 1:30 PM SOURCING INTER[employer] Narrative [facility] - 01/03/2024 2:38 PM [employer]ING [employer] FASTING:UNKNOWN FASTING: UNKNOWN Abimbola Ospina NP LAB MICROBIOLOGY - GENERAL ORDER JOSE Final Result [facility] [address] [facility] [address] * HM COLONOSCOPY (01/21/2022) Historical Provider HEALTH MAINTENANCE Final Result from Last 3 Months or Most Recently Relevant to Health Maintenance Insurance [facility] Address: [place] [address] [facility] Address: [place] [address] [facility] Address: [place] [address] Care Teams Brewery Pumper Relationship Specialty Start Date End Date Abimbola Ospina NP [address] [address] PCP - General Family Medicine 12/30/23
--- NOTE | 2025-01-22 14:01 | ECG_ITS ---
Test Date: 2025-01-22 14:05:47 Measurements Intervals [place] Rate: 71 P: 54 IL: 181 QRS: 82 QRSD: 118 T: 56 QT: 389 QTc: 425 Interpretive Statements SINUS RHYTHM INCOMPLETE RIGHT BUNDLE BRANCH BLOCK [90+ ms QRS DURATION, TERMINAL R IN V1/V2, 40+ ms S IN I/aVL/V4/V5/V6] Compared to ECG 01/22/2025 10:56:23 No significant changes Electronically Signed On 01-23-2025 14:28:56 CDT by Destinee Vasquez M.D.
[2025-01-22 14:53] LABS: Troponin I < 0.012 ng/mL (0.000-0.034)
== END 2025-01-22 16:16 | disposition home or self-care (01) ==
PROVIDERS: Emergency Provider Emergency Medicine; PCP Nurse Practitioner Family
DX: R07.89 Other chest pain (principal); R55 Syncope and collapse; I10 Essential (primary) hypertension; K21.9 Gastro-esophageal reflux disease without esophagitis; M19.90 Unspecified osteoarthritis, unspecified site; F17.290 Nicotine dependence, other tobacco product, uncomplicated; I45.10 Unspecified right bundle-branch block
CPT/HCPCS: 36415; 70496; 70498; 80053; 84484; 85025; 85610; 85730; 93005; 99284; Q9967

== ENCOUNTER 2025-03-16 01:43 | Day surgery (SDC) | payer OTHER, SELFPAY ==
[2025-03-06 16:12] VITALS: BMI 29.9
--- OUTSIDE RECORDS SUMMARY | 2025-03-16 01:45 | XMS_ITS | Referral Summary ---
Author Organization [facility] Address [address] [place] [address] Care Team Providers Care Financial Sales Representative Name Role Phone Abimbola Ospina NP Primary Care Provider [phone] Encounters Date Type Department Care Team Description 03/13/2025 Orders Only [facility] Medical [facility] Cardiology [address] [place] [address] ProviderCherise MD 03/12/2025 1:45 PM CDT Office Visit [facility] Medical [facility] Cardiology [address] [facility] [address] [place] [address] Paris Zavaleta MD Tobacco use (Primary Dx); Family history of premature CAD; Essential hypertension; Lipid screening 01/23/2025 Telephone [facility] Medical Group Primary Care at [address] [address] Abimbola Ospina NP Recommendation Request from Last 3 Months Allergies Active Allergy Reactions Criticality Noted Date Comments Penicillins Unknown 12/14/2019 Medications cloNIDine (CATAPRES) 0.1 mg tabletIndication s:Essential hypertension Take 1 tablet (0.1 mg total) by mouth 2 (two) times a day 180 tablet 3 04/20/20 24 Active Additional Information Patient not taking.Reported on 03/12/2025 imiquimod (ALDARA) 5 % creamIndications :Lesion of penis Apply topically 3 (three) times a week 24 each 07/07/20 24 Active Additional Information Patient not taking.Reported on 03/12/2025 losartan (COZAAR) 50 mg tabletIndication s:Essential hypertension Take 1 tablet (50 mg total) by mouth daily 90 tablet 1 12/12/19 25 Active promethazine-DM (PROMETHAZINE-DM ) 1.25-3 mg/mL syrup Take 5 mL by mouth every 4 (four) hours as needed for cough 120 mL 12/12/19 25 Active Additional Information Patient not taking.Reported on 03/12/2025 clonazePAM (KlonoPIN) 0.5 mg tablet Take 1 tablet (0.5 mg total) by mouth daily as needed for anxiety 30 tablet 02/29/20 25 Active amLODIPine (NORVASC) 5 mg tablet Take 1 tablet (5 mg total) by mouth daily 90 tablet 3 03/12/20 25 026 Active clonazePAM (KlonoPIN) 0.5 mg tablet Take 1 tablet (0.5 mg total) by mouth daily as needed for anxiety 30 tablet 01/24/20 25 025 Discontin ued(Reord er) amLODIPine (NORVASC) 5 mg tablet Take 1 tablet (5 mg total) by mouth daily 30 tablet 11 03/12/20 25 025 Discontin ued(Reord er) Active Problems Problem Noted Date Diagnosed Date Family history of premature CAD 03/12/2025 Lesion of penis 04/24/2024 CARLA (generalized anxiety disorder) 12/30/2023 Assessment & Plan (12/12/2024 4:40 PM LEARNING DISABLED TEACHER): PRN Clonazepam refilled Assessment & Plan (12/30/2023 2:50 PM LEARNING DISABLED TEACHER): Has had increased anxiety r/t break up with girlfriend over the past 6 months. Was rx'd Alprazolam in the past from prior PCP, uses very sparingly (last refill 05/2023). I am going to switch to Clonazepam prn. Patient education provided, patient not interested in daily medication at this time. Neuropathy 12/11/2021 Assessment & Plan (12/11/2021 6:17 PM LEARNING DISABLED TEACHER): Advised cockup splints at hs x 4w Discussed referral for emg/further evaluation if not improving or if symptoms worsen Tobacco use 12/11/2021 Assessment & Plan (12/11/2021 6:17 PM LEARNING DISABLED TEACHER): Advised him to stop smoking Positive colorectal cancer screening using Colog uard test 12/11/2021 Assessment & Plan (12/11/2021 6:16 PM LEARNING DISABLED TEACHER): Will refer for evaluation with gi Essential hypertension 12/11/2021 Assessment & Plan (12/12/2024 4:40 PM LEARNING DISABLED TEACHER): Initial BP elevated, repeat better. Has been [...] medications Assessment & Plan (12/30/2023 2:46 PM LEARNING DISABLED TEACHER): Home BP's occasionally ranging 150-160's/90-100's since anxiety [...] log. Assessment & Plan (12/11/2021 6:16 PM LEARNING DISABLED TEACHER): We discussed potentially adjusting medications - will [...] 12/29/2021 Assessment & Plan (12/11/2021 6:17 PM LEARNING DISABLED TEACHER): Retrieve records from previous pcp Immunizations Immunization [...] on file Legal Sex Male 5:13 PM LEARNING DISABLED TEACHER Gender Identity Not on file Sexual Orientation Not on file Last Filed Vital Signs Vital Sign Reading Time Taken Comments Blood Pressure 148/90 03/12/2025 1:40 PM CDT Pulse 86 03/12/2025 1:40 PM CDT Temperature 36.4 C (97.5 F) 12/12/2024 4:03 PM LEARNING DISABLED TEACHER Respiratory Rate 16 04/20/2024 3:21 PM CDT Oxygen Saturation 99% 03/12/2025 1:40 PM CDT Inhaled Oxygen Concentration - - Weight 96.6 kg (213 lb) 03/12/2025 1:40 PM CDT Height 177.8 cm (5' 10 ) 03/12/2025 1:40 PM CDT Body Mass Index 30.56 03/12/2025 1:40 PM CDT Plan of Treatment Not on file Procedures Procedure Name Priority Date/Time Associated Diagnosis Comments POCT LIPID PANEL Routine 03/12/2025 1:36 PM CDT Lipid screening ECG 12-LEAD Routine 01/22/2025 9:51 AM CDT HEPATITIS PANEL, ACUTE Routine 12/31/2023 1:25 PM LEARNING DISABLED TEACHER HM COLONOSCOPY Routine 01/21/2022 from Last 3 Months or Most Recently Relevant to Health Maintenance Results * POCT lipid panel (03/12/2025 1:36 PM CDT) Cholesterol, POC 198 mg/dL HDL, POC >100 mg/dL Triglycerides, POC 55 mg/dL LDL Cholesterol POC 86 mg/dL Chol/HDL Ratio, POC N/A Non-HDL Cholesterol, POC N/A mg/dL Cholesterol Total, POC 198 mg/dL Capillary blood 03/12/2025 1 :36 PM CDT Paris Zavaleta MD POINT OF CARE TEST O RDERABLES Final Result * ECG 12 lead (01/22/2025 9:51 AM CDT) Historical Provider ECG ORDERABLES Edited Re sult - Final * Hepatitis panel, acute (12/31/2023 1:25 PM LEARNING DISABLED TEACHER) Pathologist [facility] Hep A IgM NON-REACTI VE NON-REACT OPAL [facility] Comment: For additional information, please refer to http://Eloqua.BuzzElement.Iron.io/faq/FPT859 (This link is being provided for informational/ educational purposes only.) HepBsAg NON-REACTI VE NON-REACT OPAL [facility] Comment: For additional information, please refer to http://Eloqua.Qian Xiao'er/faq/HEQ502 (This link is being provided for informational/ educational purposes only.) Hep B core IgM NON-REACTI VE NON-REACT OPAL [facility] Comment: For additional information, please refer to http://Eloqua.Qian Xiao'er/faq/OJL444 (This link is being provided for informational/ educational purposes only.) Hep C Ab NON-REACTI VE NON-REACT OPAL [facility] Comment: HCV antibody was non-reactive. There is no laboratory evidence of HCV infection. In most cases, no further action is required. However, if recent HCV exposure is suspected, a test for HCV RNA (test code 79058) is suggested. For additional information please refer to http://Eloqua.Qian Xiao'er/faq/DXL70e1 (This link is being provided for informational/ educational purposes only.) 12/31/2023 1:25 PM LEARNING DISABLED TEACHER 12/31/2023 1:30 PM LEARNING DISABLED TEACHER Narrative [facility] - 01/03/2024 2:38 PM LEARNING DISABLED TEACHER FASTING:UNKNOWN FASTING: UNKNOWN Abimbola Ospina NP LAB MICROBIOLOGY - GENERAL ORDER JOSE Final Result [facility] [address] [place] [address] * HM COLONOSCOPY (01/21/2022) Historical Provider HEALTH MAINTENANCE Final Result from Last 3 Months or Most Recently Relevant to Health Maintenance Insurance [facility]/PPO Address: [facility] [address] [place] [address] [facility] H[facility]/PPO Address: [address] [address] [facility] H[facility]/PPO Address: [address] [address] Care Teams Financial Sales Representative Relationship Specialty Start Date End Date Abimbola Ospina NP [address] [address] PCP - General Family Medicine 12/30/23
--- OUTSIDE RECORDS SUMMARY | 2025-03-16 01:45 | XMS_ITS | Clinical Summary ---
Author Organization [facility] Address [address] [place] [address] Care Team Providers Care Game Room Attendant Name Role Phone Abimbola Ospina NP Primary Care Provider [phone] Allergies Active Allergy Reactions Criticality Noted Date [...] 12/30/2023 Assessment & Plan (12/12/2024 4:40 PM INSPECTOR PACKER GLASS CONTAINER): PRN Clonazepam refilled Assessment & Plan (12/30/2023 2:50 PM INSPECTOR PACKER GLASS CONTAINER): Has had increased anxiety r/t break up with girlfriend over the past 6 months. Was rx'd Alprazolam in the past from prior PCP, uses very sparingly (last refill 05/2023). I am going to switch to Clonazepam prn. Patient education provided, patient not interested in daily medication at this time. Neuropathy 12/11/2021 Assessment & Plan (12/11/2021 6:17 PM INSPECTOR PACKER GLASS CONTAINER): Advised cockup splints at hs x 4w Discussed referral for emg/further evaluation if not improving or if symptoms worsen Tobacco use 12/11/2021 Assessment & Plan (12/11/2021 6:17 PM INSPECTOR PACKER GLASS CONTAINER): Advised him to stop smoking Positive colorectal cancer screening using Colog uard test 12/11/2021 Assessment & Plan (12/11/2021 6:16 PM INSPECTOR PACKER GLASS CONTAINER): Will refer for evaluation with gi Essential hypertension 12/11/2021 Assessment & Plan (12/12/2024 4:40 PM INSPECTOR PACKER GLASS CONTAINER): Initial BP elevated, repeat better. Has been [...] medications Assessment & Plan (12/30/2023 2:46 PM INSPECTOR PACKER GLASS CONTAINER): Home BP's occasionally ranging 150-160's/90-100's since anxiety [...] log. Assessment & Plan (12/11/2021 6:16 PM INSPECTOR PACKER GLASS CONTAINER): We discussed potentially adjusting medications - will [...] 12/29/2021 Assessment & Plan (12/11/2021 6:17 PM INSPECTOR PACKER GLASS CONTAINER): Retrieve records from previous pcp Encounters Date Type Department Care Team Description 03/13/[address] [facility] Medical [facility] Cardiology [address] [facility] [address] [place] [address] ProviderCherise MD 03/12/2025 1:45 PM CDT Office Visit [facility] Cardiology [address] [place] [address] Paris Zavaleta MD Tobacco use (Primary Dx); Family history of premature CAD; Essential hypertension; Lipid screening 01/23/[address] [facility] Medical Group Primary Care at [address] [address] Abimbola Ospina NP Recommendation Request from Last 3 Months Immunizations Immunization Administration [...] on file Legal Sex Male 5:13 PM INSPECTOR PACKER GLASS CONTAINER Gender Identity Not on file Sexual Orientation Not on file Obstetrics History Last Filed Vital Signs Vital Sign Reading Time Taken Comments Blood Pressure 148/90 03/12/2025 1:40 PM CDT Pulse 86 03/12/2025 1:40 PM CDT Temperature 36.4 C (97.5 F) 12/12/2024 4:03 PM INSPECTOR PACKER GLASS CONTAINER Respiratory Rate 16 04/20/2024 3:21 PM CDT Oxygen Saturation 99% 03/12/2025 1:40 PM CDT Inhaled Oxygen Concentration - - Weight 96.6 kg (213 lb) 03/12/2025 1:40 PM CDT Height 177.8 cm (5' 10 ) 03/12/2025 1:40 PM CDT Body Mass Index 30.56 03/12/2025 1:40 PM CDT Plan of Treatment Health Maintenance Due Date Last Done Comments Hepatitis B Screening 1994 Regular Well Visit/Exam 18-64 1994 DTaP/Tdap/Td Vaccine (1 - Tdap) 04/17/2025 Postponed from 1987 (Patient declined, but will receive in the future) Influenza Vaccine (Season Ended) 2025 Depression Screening 12/12/2025 12/12/2024, 12/30/2023, 05/20/2023, Additional [...] HEPATITIS PANEL, ACUTE Routine 12/31/2023 1:25 PM INSPECTOR PACKER GLASS CONTAINER HM COLONOSCOPY Routine 01/21/2022 from Last 3 [...] * Hepatitis panel, acute (12/31/2023 1:25 PM INSPECTOR PACKER GLASS CONTAINER) Hep A IgM NON-REACTI VE NON-REACT OPAL [facility] Comment: For additional information, please refer to http://eEye/faq/ESN171 (This link is being provided for informational/ educational purposes only.) HepBsAg NON-REACTI VE NON-REACT OPAL [facility] Comment: For additional information, please refer to http://eEye/faq/CPV519 (This link is being provided for informational/ educational purposes only.) Hep B core IgM NON-REACTI VE NON-REACT OPAL [facility] Comment: For additional information, please refer to http://eEye/faq/VMX718 (This link is being provided for informational/ educational purposes only.) Hep C Ab NON-REACTI VE NON-REACT OPAL [facility] Comment: HCV antibody was non-reactive. There is no laboratory evidence of HCV infection. In most cases, no further action is required. However, if recent HCV exposure is suspected, a test for HCV RNA (test code 17978) is suggested. For additional information please refer to http://eEye/faq/IOV98x2 (This link is being provided for informational/ educational purposes only.) 12/31/2023 1:25 PM INSPECTOR PACKER GLASS CONTAINER 12/31/2023 1:30 PM INSPECTOR PACKER GLASS CONTAINER Narrative [facility] - 01/03/2024 2:38 PM INSPECTOR PACKER GLASS CONTAINER FASTING:UNKNOWN FASTING: UNKNOWN us Abimbola Ospina NP LAB MICROBIOLOGY - GENERAL ORDER JOSE Final Result [facility] [address] [place] [address] * HM COLONOSCOPY (01/21/2022) Historical Provider HEALTH MAINTENANCE Final Result from Last 3 Months or Most Recently Relevant to Health Maintenance Insurance Care Teams Game Room Attendant Relationship Specialty Start Date End Date Abimbola Ospina NP [address] [address] PCP - General Family Medicine 12/30/23
--- OUTSIDE RECORDS SUMMARY | 2025-03-16 01:45 | XMS_ITS | Encounter Summary ---
Author Organization [facility] Healthcare Address [address] [place] [address] Care Team Providers Care Resaw Machine Operator Name Role Phone Abimbola Ospina NP Primary Care Provider [phone] Reason for Referral * Cardiology (Routine) - Closed Specialty Diagnoses / Procedures Referred By Contprince t Referred To Contact Procedures ECG 12 lead Cherise Barker MD [address] [place] [address] Phone: tel: Referral ID Status Reason Start Date Expiration Date Visits Re quested Visits Authorized [id number] Closed 03/13/2025 04/12/2026 1 1 Encounter Details Date Type Department Care Team (Late st Contact Info) Description 03/13/2025 Orders Only [facility] Medical Group Cardiology [address] [place] [address] Cherise Barker MD [address] [place] [address] Social History Tobacco Use Types Packs/Day Years Used Date Smoking Tobacco: Some Days Cigarettes Cigars Passive Smoke Exposure: Current Smokeless Tobacco: Never Alcohol Use Standard Drinks/Week Comments Yes 10 [...] on file Legal Sex Male 5:13 PM CHANGE MANAGEMENT COORDINATOR Gender Identity Not on file Sexual Orientation Not on file documented as of this encounter Plan of Treatment Not on file documented as of this encounter Procedures Procedure Name Priority Date/Time Associated Diagnosis Comments ECG 12-LEAD Routine 01/22/2025 9:51 AM CDT documented in this encounter Results * ECG 12 lead (01/22/2025 9:51 AM CDT) us Historical Provider ECG ORDERABLES Edited Re sult - Final documented in this encounter Visit Diagnoses Not on filedocumented in this encounter Care Teams Resaw Machine Operator Relationship Specialty Start Date End Date Abimbola Ospina NP [address] [facility] [address] [place] [address] PCP - General Family Medicine 12/30/23 documented as of this encounter
[2025-03-16 09:07] VITALS: BP 146/92; PULSE 86; RESP 20; TEMP 36.4; O2SAT 100
[2025-03-16] MEDS: LACTATED RINGERS 1,000 ML 150 ML IV CONT (09:16)
--- NOTE | 2025-03-16 09:35 | WPDANESEPPF ---
Anes - Initial Pre Proc Eval Procedure: Operation Date: 03/16/25 10:30 Proposed Procedures p Screening Colonoscopy - Markus Rosa MD Date/Time: 03/16/25 09:35 Surgeon: Markus Rosa MD Pre Op Diagnosis: Screening Patient Data Age: 49 Gender: M Height: 1.8 m Weight: 92.8 kg Last Vital Signs Temp 36.4 C 03/16/25 09:07 Pulse 86 03/16/25 09:07 Resp 20 03/16/25 09:07 BP 146/92 H 03/16/25 09:07 Pulse Ox 100 03/16/25 09:07 O2 Del Method Room Air 03/16/25 09:07 Allergies Allergy/AdvReac Type Severity Reaction Status Date / Time Penicillins Allergy Unknown Rash Verified 03/16/25 09:05 Home Medications ?Medication ?Instructions ?Recorded ?Confirmed ?Type clonidine HCl 0.1 mg tablet 0.1 mg PO DAILY 03/04/21 03/16/25 History losartan 50 mg tablet mg 03/06/25 History Patient hx anesthesia problems: none Family hx anesthesia problems: none Results Review: All pre-operative results and documents have been reviewed as part of the pre-operative evaluation. [facility] Past Medical History Medical History (Updated 03/16/25 @ 09:40 by Markus Rosa MD) Adenomatous colon polyp Positive colorectal cancer screening using Cologuard test Arthritis Chronic GERD Obese Inguinal hernia HTN (hypertension) Surgical History Surgical History Hx of inguinal hernia repair Social History Social History (Updated 03/16/25 @ 09:41 by Nicholas Flower DO) Smoking status: Smoker, status unknown Tobacco type: cigars Alcohol intake: current Alcohol use details: 6 beers/day Substance use: never Substance use type: marijuana Last use: periodically Living arrangements: with family Occupation/Education: occupation Gender identity (if verbalized by the patient): Male Spiritual care concerns: No Anes - Eval Final PreProcedure Day of Procedure 03/16/25 09:35 Patient weight: overweight Heart: regular rate and rhythm Lungs: clear to auscultation Airway: Mallampati scale class II Neurological: alert and oriented Last oral intake: >/= 8 hours ASA classification: III Emergent: no Anesthetic plan: proceed Anesthesia type and monitoring: general GIVS and standard monitoring Results Review: All pre-operative results and documents have been reviewed as part of the pre-operative evaluation. Informed Consent: The patient's anesthetic plan and its attendant risks and benefits were discussed with the patient/family/POA. Questions were solicited and answers provided to the satisfaction of the patient/family/POA.
--- NOTE | 2025-03-16 09:39 | PM.HPGS ---
History of Present Illness History of Present Illness Consent: Risks, benefits, and alternatives have been discussed and questions answered. Patient agrees to proceed with procedure. Chief complaint: Screening Narrative: Casey La is a 49 year old male with colon polyp in 2021 Review of Systems Review of Systems: All systems reviewed & are unremarkable except as noted in HPI and below PMFSH Past Medical History Medical History (Updated 03/16/25 @ 09:40 by Markus Rosa MD) Adenomatous colon polyp Positive colorectal cancer screening using Cologuard test Arthritis Chronic GERD Obese Inguinal hernia HTN (hypertension) Surgical History Surgical History Hx of inguinal hernia repair Social History Social History Smoking status: Smoker, status unknown Tobacco type: cigars Alcohol intake: current Alcohol use details: 6 beers/day Substance use: never Substance use type: marijuana Last use: periodically Living arrangements: with family Occupation/Education: occupation Gender identity (if verbalized by the patient): Male Spiritual care concerns: No Meds Home Medications and Allergies Home Medications ?Medication ?Instructions ?Recorded ?Confirmed ?Type clonidine HCl 0.1 mg tablet 0.1 mg PO DAILY 03/04/21 03/16/25 History losartan 50 mg tablet mg 03/06/25 History Allergies Allergy/AdvReac Type Severity Reaction Status Date / Time Penicillins Allergy Unknown Rash Verified 03/16/25 09:05 Vital Signs Vital Signs - 24 hr 03/16/25 09:07 Temperature 97.6 F Pulse Rate 86 Respiratory Rate 20 Blood Pressure 146/92 H Pulse Oximetry 100 Oxygen Delivery Room Air Exam Const: General: comfortable and no acute distress HENMT: Face/Nose/Sinus: Normal nares present Eyes: General: appearance normal, both eyes and all related structures Neck: Neck: no JVD Resp: Auscultation: clear to auscultation bilaterally Cardio: Rate: regular rate Rhythm: regular rhythm GI: Inspection: non-distended GI Palp: Yes Soft to palpation Skin: General skin exam: normal color Neuro: General: gait normal Speech: normal speech Extrem: General: normal to inspection Psych: Mental Status: mental status grossly normal Assessment and Plan Assessment and plan (1) Adenomatous colon polyp: Code(s): D12.6 - Benign neoplasm of colon, unspecified Status: Acute Assessment and Plan: colonoscopy
[2025-03-16 09:58] VITALS: BP 116/70; PULSE 72; RESP 17; O2SAT 100
[2025-03-16 10:08] VITALS: BP 123/73; PULSE 70; RESP 16; O2SAT 100
[2025-03-16 10:18] VITALS: BP 126/78; PULSE 68; RESP 16; O2SAT 100
== END 2025-03-16 10:26 | disposition home or self-care (01) ==
PROVIDERS: PCP Nurse Practitioner Family; Referring Provider Nurse Practitioner Family; Visit Provider Internal Medicine Gastroenterology
PROC: 0DJD8ZZ Inspection of Lower Intestinal Tract, Via Natural or Artificial Opening Endoscopic (ICD-10-PCS; CPT 45378; principal; 2025-03-16 10:30)
DX: Z12.11 Encounter for screening for malignant neoplasm of colon (principal); K64.8 Other hemorrhoids; I10 Essential (primary) hypertension; K21.9 Gastro-esophageal reflux disease without esophagitis; M19.90 Unspecified osteoarthritis, unspecified site; F17.290 Nicotine dependence, other tobacco product, uncomplicated; F12.90 Cannabis use, unspecified, uncomplicated; Z86.0100 Personal history of colon polyps, unspecified; Z87.19 Personal history of other diseases of the digestive system
CPT/HCPCS: 45378; J2003; J2704; J7120